=== PATIENT | male | born 1930 | race Caucasian/White ===

== ENCOUNTER 2017-01-28 18:07 | Inpatient (IN) | payer MEDICARE ==
[~2017-01-28] VITALS: Ht 165.1 cm; Wt 68.7 kg
[~2017-01-28 18:07] MED LIST: ASP81TEC PO; LISI20TA PO; TAM4 PO
--- NOTE | 2017-01-28 18:44 | ED.REPORT ---
HPI-Chest Pain 40 and Over Date of Service Jan 28, 2017 ED Provider: Dr. Powell 86 y/o male on Warfarin with a hx of HTN, BPH and angina presents to the ED complaining of waxing and waning substernal chest pain that radiates to the right side, onset a couple of hours ago. The pt was visiting his in the ED when his pain came on. The pt describes the pain as pressure that has been going on intermittently for about 7 months. It typically resolves after he rests and takes a few deep breaths. Today, the pain came on after he ate and did not resolve. Nursing Notes Stated Complaint: CHEST PAIN Chief Complaint: Chest Pain Nursing Notes Reviewed: Yes Allergies: Coded Allergies: No Known Allergies (Unverified Allergy, Unknown, 12/01/13) Scheduled Aspirin Chew (Aspirin Chew) 81 Mg Chew 81 MG PO QAM Atorvastatin (Lipitor) 20 Mg Tablet 20 MG PO HS Cholecalciferol (Vitamin D3) (Vitamin D3) 1,000 Unit Tab.chew 1,000 UNIT PO QAM Cyanocobalamin (Vitamin B12) 500 Mcg Tablet 1,000 MCG PO QAM Finasteride (Finasteride) 5 Mg Tablet 5 MG PO QAM Isosorbide MN ER (Isosorbide MN ER) 60 Mg Tab.er.24h 60 MG PO QAM Lisinopril (Lisinopril) 5 Mg Tablet 5 MG PO QAM Metoprolol Tartrate (Metoprolol Tartrate) 25 Mg Tablet 12.5 MG PO BID Tamsulosin ER (Tamsulosin ER) 0.4 Mg Cap.er.24h 0.8 MG PO HS Scheduled PRN Alprazolam (Alprazolam) 0.5 Mg Tablet 0.25 MG PO TID PRN PRN For Anxiety Nitroglycerin SL (Nitroglycerin SL) 0.4 Mg Tab.subl 0.4 MG SL Q5MIN PRN PRN For Chest Pain General Time Seen by MD: 18:44 Chief Complaint Chest pain Hx Obtained From: Patient Arrived By: Walk-in Sudden in Onset?: Yes Onset Occurred: 1 - 4 hours ago Symptom Duration: Waxes and wanes Location: : Substernal Quality: Pressure Radiation: : Shoulder right Severity: Current: Mild Severity: Maximum: Mild Recent Healthcare: No recent doctor visit Similar Sx Previous: Yes Past Medical History Past Medical History BPH HTN Angina Past Surgical History 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 Smoking History Unknown if Ever Smoker Social History Other Social History: Good social support, Ambulatory Status Independent Review of Systems Cardiovascular: Reports: Chest pain Complete sys rev & neg: except as marked. Physical Exam Initial Vital Signs Vital Signs (First) Date Time Temp Pulse Resp B/P Pulse Ox O2 Delivery O2 Flow Rate FiO2 01/28/17 18:55 36.7 135 20 121/76 95 Room Air Initial VS: Reviewed Head / Eyes: Atraumatic, Normocephalic Neck: Supple, Non-tender, Full range of motion Extremities: Vascular intact, Neuro intact, No swelling, No tenderness Skin: Warm, Dry, No cyanosis Neurologic: Alert, Oriented, Nonfocal General/Constitutional: Awake, Alert, Cooperative Respiratory / Chest: Atraumatic, Breath sounds NL, Breath sounds = bilat, No respiratory distress, No rales, No rhonchi, No wheezing Cardiovascular: Heart sounds NL, No murmurs, No rubs Heart Rate / Rhythm: Positive: Irreg irregular rhythm, Tachycardia Afib with RVR Abdomen: Atraumatic, Soft, Non-tender Interpretation & Diagnostics Lab Results Interpretation Result Diagram: 01/28/17191401/28/171914 Test 01/28/17 19:15 01/28/17 21:00 White Blood Count 18.3th/mm3 (3.8-10.1) Red Blood Count 4.43mil/mm3 (4.40-5.80) Hemoglobin 13.8g/dL (13.8-17.2) Hematocrit 40.8% (41.0-50.0) Mean Corpuscular Volume 92.1fL (81-100) Mean Corpuscular Hemoglobin 31.2pg (27.0-35.0) Mean Corpuscular Hemoglobin Concent 33.8% (32.0-37.0) Red Cell Distribution Width 13.7% (12.3-15.4) Platelet Count 196bil/L (150-400) Neutrophils (%) (Auto) 76.0% (40-74) Lymphocytes (%) (Auto) 10.7% (14-46) Monocytes (%) (Auto) 12.5% (4-12) Eosinophils (%) (Auto) 0.2% (0-5) Basophils (%) (Auto) 0.3% (0-3) Prothrombin Time 11.1sec (8.1-12.5) Prothromb Time International Ratio 1.04ratio Sodium Level 133mEq/L (134-144) Potassium Level 4.1mEq/L (3.5-5.2) Chloride Level 97mEq/L (97-108) Carbon Dioxide Level 21mmol/L (18-29) Blood Urea Nitrogen 24mg/dL (8-27) Creatinine 1.06mg/dL (0.76-1.27) Estimat Glomerular Filtration Rate 70mL/min (>59) Glucose Level 197mg/dL (60-99) Calcium Level 8.6mg/dL (8.5-10.1) Magnesium Level 2.0mg/dL (1.6-2.6) Total Bilirubin 0.9mg/dL (0.0-1.2) Aspartate Amino Transf (AST/SGOT) 12U/L (0-50) Alanine Aminotransferase (ALT/SGPT) 9U/L (0-44) Alkaline Phosphatase 67U/L (25-160) Total Protein 7.3g/dL (6.4-8.4) Albumin 3.4g/dL (3.4-5.0) Procalcitonin 0.04ng/mL (0.00-0.08) Thyroid Stimulating Hormone (TSH) 1.280uIU/mL (0.450-4.500) Hold Rivera Top Tube Received (Received) Urine Color Yellow (YELLOW) Urine Appearance Clear (CLEAR,HAZY) Urine pH 5.0 (5.0-8.0) Urine Specific [place] 1.005 (1.003-1.035) Urine Protein Negativemg/dL (NEG,TRACE) Urine Glucose (UA) Negativemg/dL (NEGATIVE) Urine Ketones Negativemg/dL (NEGATIVE) Urine Occult Blood Trace (NEGATIVE) Urine Nitrite Negative (NEGATIVE) Urine Bilirubin Negative (NEGATIVE) Urine Urobilinogen Normalmg/dL (NORMAL) Urine Leukocyte Esterase Trace (NEGATIVE) Urine RBC 3-10/hpf (0-2) Urine WBC 6-10/hpf (0-5) Urine Epithelial Cells Occasional/hpf (NONE-MOD) Urine Crystals None seen (NONE SEEN) Urine Bacteria Few/hpf (NONE-FEW) Urine Hyaline Casts None/lpf (NONE) Urine Granular Casts None seen (NONE SEEN) Urine Waxy Casts None seen (NONE SEEN) Urine Red Blood Cell Casts None seen (NONE SEEN) Urine White Blood Cell Casts None seen (NONE SEEN) Urine Mucus None seen (None Seen) Urine Trichomonas None seen (NONE SEEN) Urine Yeast None (NONE SEEN) Urinalysis Comment None Urine Culture Reflexed Indicated ECG Interpretation ECG Interpretation: Atrial Fibrillation with RVR. Rate 148. Repolarization abnormality, prob rate related. Time: 18:51 Interpreted by: ED physician X-Ray Chest Interpretation Chest Xray Interpretation: IMPRESSION: No acute cardiopulmonary disease. 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 Dictated by: Bobby Weaver M.D. on 01/28/2017 at 19:10 Approved by: Bobyb Weaver M.D. on 01/28/2017 at 19:12 View: Portable, 1 view Interpretation / Wet Read by: Interpret - Radiologist Re-Eval/Medical Decision Source of Hx: Old records Time of Eval: 18:48 Re-Evaluation/Progress Note: Discussed diagnosis and plan to admit. Pt understands and agrees with the plan for admission. All questions addressed. Time of Eval: 20:32 Re-Evaluation/Progress Note: Rechecked pt. His BP is 97 and heart rate is coming down. The pt agrees with the plan to admit. All questions answered. Consultation : Referral / Consult Name: Vicky Simon DO Consulted With: Hospitalist Call Returned at: 20:48 Tractor Technician: Will see patient, Agrees with eval, Agrees with plan, Accepts admit Counseled Regarding: Diagnosis, Lab results, Need for admission Discharge & Departure Primary Impression: Atrial fibrillation with RVR Additional Impression: New onset a-fib Disposition: ADMITTED TO HOSPITAL Discharge Condition All VS Reviewed: Yes Referrals: Amilcar Rivera MD (PCP) Crit Care Except Billable Proc Time Spent: 30-74 minutes Services Performed: Patient management by me, Time spent at bedside, Reviewing test results, Reviewing imaging, Discussing patient care, Documentation in record, Time with fam/surrogate Scribe Attestation Portions of this note were transcribed by Ritika Wright. IDr.Beia, personally performed the history, physical exam and medical decision-making;I reviewed and confirmed the accuracy of the information in the transcribed note. Signed by Wang Abad. 01/28/17 20:52 copies to: Amilcar Rivera MD, Todd P DO Jan 28, 2017 18:44 Ritika Wright Jan 28, 2017 18:50
[2017-01-28 18:55] VITALS: BP 121/76; PULSE 135; RESP 20; O2SAT 95
--- NOTE | 2017-01-28 19:13 | DRSVH ---
PROCEDURE: X-RAY CHEST ONE VIEW, PORTABLE ([id number]) INDICATIONS: 86 year-old male with left chest pain and tachycardia. TECHNIQUE: One view of the chest was acquired. COMPARISON: [facility], CT, CHEST WITH CONTRAST, 12/01/2013, 16:21. [facility], CR, XR CHEST 2VW, 12/21/2016, 9:48. [facility], CR, XR CHEST 2VW, 03/01/2016, 12:55. [facility], CR, ABDOMEN-ACUTE ABD SERIES, 08/03/2015, 2:29 PM. FINDINGS: Surgical changes and devices: None. Lungs and pleura: No pleural effusions or pneumothorax. Bilateral calcified pleural plaques are aga in noted. Lungs are clear. Mediastinum: Mediastinal contours appear normal. Heart size is normal. There is aortic atheroscler osis. Bones and chest wall: No suspicious bony lesions. Overlying soft tissues appear unremarkable. IMPRESSION: No acute cardiopulmonary disease. Bilateral calcified pleural plaques indicate remote asb estos exposure. Dictated by: Bobby Weaver M.D. on 01/28/2017 at 19:10 Approved by: Bobby Weaver M.D. on 01/28/2017 at 19:12
[2017-01-28 19:26] LABS: BASOPHILS % (AUTO) 0.3 % (0-3); EOSINOPHILS % (AUTO) 0.2 % (0-5); MONOCYTES % (AUTO) 12.5 % (4-12); Mean Corpuscular Hemoglobin 31.2 pg (27.0-35.0); Mean Corpuscular Volume 92.1 fL (81-100); Platelet Count 196 bil/L (150-400)
[2017-01-28 19:42] LABS: INR 1.04 ratio
[2017-01-28 19:43] VITALS: BP 112/57; PULSE 135; RESP 17; O2SAT 95
[2017-01-28] MEDS: Diltiazem HCl 125 MG in 0.9% Sodium Chloride 100 ML, Pharmacy To Mix 1 EA IV SCH (19:43)
[2017-01-28 20:25] LABS: TROPONIN T < 0.010 ug/L (0.0-0.011)
[2017-01-28] MEDS ORDERED: 0.9% Sodium Chloride 500 ML IV ONE (20:40)
[2017-01-28] MEDS ORDERED: ATOR20TA PO (20:43)
[2017-01-28] MEDS ORDERED: LISI-571 PO (20:43)
[2017-01-28] MEDS ORDERED: ASPI81TA3 PO (20:43)
[2017-01-28] MEDS ORDERED: ISOS60TA2 PO (20:43)
[2017-01-28] MEDS ORDERED: METO25TA6 PO (20:43)
[2017-01-28] MEDS ORDERED: FINA5TAB9 PO (20:43)
[2017-01-28] MEDS ORDERED: NITR0.4T6 SL (20:43)
[2017-01-28] MEDS ORDERED: CYAN500 PO (20:43)
[2017-01-28] MEDS ORDERED: CHOL10008 PO (20:43)
[2017-01-28] MEDS ORDERED: ALPR0.5T8 PO (20:43)
[2017-01-28] MEDS ORDERED: TAMS0.4C29 PO (20:43)
[2017-01-28 20:50] VITALS: BP 106/75; PULSE 114; RESP 17; O2SAT 95
[2017-01-28] MEDS ORDERED: Alum-Mag Hydrox-Simeth 30 mL Suspension PO PRN (20:50)
[2017-01-28] MEDS ORDERED: Ondansetron 2 mg/mL 2 mL Inj IVPUSH PRN (20:50)
[2017-01-28] MEDS ORDERED: HYDROcodone-APAP 5-325 mg Tablet PO PRN (20:50)
[2017-01-28] MEDS ORDERED: Polyethylene Glycol (PEG) 17 Gm Powder PO PRN (20:50)
[2017-01-28 21:26] LABS: APPEARANCE,URINE CLEAR (CLEAR,HAZY); COLOR,URINE YELLOW (YELLOW); OCCULT BLOOD,URINE TRACE (NEGATIVE); UROBILINOGEN,URINE NORMAL (NORMAL)
[2017-01-28 21:46] VITALS: BP 132/72; PULSE 112; RESP 17; O2SAT 96
[2017-01-28 22:05] VITALS: BP 125/70; PULSE 101; RESP 24; O2SAT 95
[2017-01-28] MEDS: Diltiazem Inj 125 MG in Dextrose 5% 100 ML IV SCH (22:20)
--- NOTE | 2017-01-28 22:20 | PCM.HPMED ---
Subjective Date of Service Jan 28, 2017 Primary Provider: Admitting Physician: Primary Care Physician: Amilcar Rivera MD Attending Physician: Chief Complaint: Chest pain History of Present Illness: Dayan Kong is an 86-year-old man with past history significant for coronary artery disease, hyperlipidemia, hypertension, remote history of sarcoma who presented to [facility] emergency department today due to sternal chest pain that started a few hours prior to presentation. Patient noted that his pain radiated to the right side of his chest. Apparently the patient's is also in emergency department and he was visiting her when the chest pain occurred. Patient has a history of coronary artery disease and has had intermittent chest pressure for the last 7 months but has resolved spontaneously. Patient notes that today of the chest pain did not resolve. He also noticed palpitations as well as shortness of breath. He denies any diaphoresis, nausea, vomiting, dominant pain, dysuria, cough. 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 In the emergency department his vitals were notable for a heart rate of 135 with a respiratory rate of 20 and a blood pressure 121/76 percent saturation on room air. Patient was noted to be in atrial fibrillation with rapid ventricular response and was initiated on a diltiazem drip. Patient responded nicely and his rate did drop but his blood pressure dropped a little as well. He was given 500 mL bolus of normal saline IV fluid with good response. Review of Systems: A comprehensive review of systems was conducted with the patient and found to be negative except as above in the History of Present Illness. Allergies Coded Allergies: No Known Allergies (Unverified Allergy, Unknown, 12/01/13) Home Medications Robert Kong [id number] 12/21/2016 09:00 AM 07/12 Medication Name Directions alprazolam 0.5 mg tablet take 1/2 tablet by oral route 3- 4 times every day as needed aspirin 81 mg Tab take 1 tablet (81MG) by oral route every day atorvastatin 20 mg tablet take 1 tablet by oral route at bedtime finasteride 5 mg tablet take 1 tablet by oral route every day FLOMAX 0.4MG CAPSULE SA CAPSULE TAKE ONE CAPSULE DAILY 1/2 HOUR FOLLOWING THE SAME MEAL DAILY FLONASE 0.05% NASAL SPRAY INHALANT USE 1-2 SPRAYS IN EACH NOSTRIL ONCE DAILY NEEDED isosorbide mononitrate ER 60 mg tablet,extended release 24 hr take 1 tablet by oral route every day in the morning LISINOPRIL TAB 5MG TABLET TAKE ONE TABLET BY MOUTH EVERY DAY metoprolol tartrate 25 mg tablet take 1/2 tablet by oral route 2 times every day nitroglycerin 0.[address] 1 tablet by sublingual route at the first sign of an attack; no more than 3 tabs are recommended within a 15 minute period. 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 Hypertension Microalbuminuria Anxiety Coronary artery disease Hyperlipidemia Surgical History Excision of sarcoma Family History Mother has diabetes mellitus. Social History Hx Alcohol Use: No Hx Substance Use: No Hx Tobacco Use: No Smoking Status: Unknown if Ever Smoker Exam Vital Signs Vital Sign - Last Date Time Temp Pulse Resp B/P Pulse Ox O2 Delivery O2 Flow Rate FiO2 01/28/17 19:43 135 17 112/57 95 Room Air 01/28/17 18:55 36.7 Exam General: No acute distress, well-developed, well-nourished, appropriately interactive HEENT: Normocephalic, atraumatic. External ears without defect. Pupils equal, round, and reactive to light and accommodation. Anicteric sclerae, moist conjunctivae, and no lid lag. Oropharynx free of erythema and cobble stoning with moist mucosa. Hard of hearing. Neck: Supple with full range of motion. No jugular venous distension. No bruits. No lymphadenopathy or thyromegaly. Cardiovascular: Tachycardic rate and irregular rhythm with no murmurs, rubs, or gallops appreciated Pulmonary: Clear to auscultation bilaterally with no crackles, wheezes, or rhonchi. Normal respiratory effort with no use of accessory muscles. Abdomen: Bowel tones present. Soft, nontender, nondistended. No hepatosplenomegaly or masses appreciated. Extremities: No clubbing, cyanosis, edema, or lymphadenopathy appreciated. Skin: Normal temperature, turgor, and texture; no rash, ulcers, or subcutaneous nodules appreciated. Neurological: Cranial nerves grossly intact. Normal muscle strength, tone, and bulk. Reflexes, coordination, and sensory function within normal limits. No known gait impairment. Psychiatric: Normal mood and affect. Alert and oriented to person, place, and time. Lymph:no cervical or supraclavicular lymphadenopathy Lab and Diagnostics Result Diagram: 01/28/17191401/28/171914 X-Rays, CTs and MRIs X-RAY CHEST ONE VIEW, PORTABLE IMPRESSION: No acute cardiopulmonary disease. 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 Dictated by: Bobby Weaver M.D. on 01/28/2017 at 19:10 Assessment & Plan Clearance Dilan is an 86-year-old man with past history significant for coronary artery disease, hyperlipidemia, hypertension, remote history of sarcoma who presented to [facility] emergency department today due to sternal chest pain that started a few hours prior to presentation. Patient noted that his pain radiated to the right side of his chest. Atrial fibrillation with rapid ventricular response, new onset, present on admission, active -Patient does have a history of coronary artery disease and is managed by cardiology outpatient. -Etiology of his atrial fibrillation includes: CAD as well as a possible infection given patient's leukocytosis -Patient did have an echocardiogram little over 6 months ago which was largely unremarkable. repeating ECHO tomorrow. -We will check troponin, TSH. -Monitor on telemetry -CHADS-Vasc score of 4 indicating high risk for CVA, HAS-BLED score of 2 indicating moderate risk for major bleeding. -Discussed anticoagulation with patient and his family who would agree to proceed with Warfarin. -Warfarin per pharmacy -Hold home metoprolol Leukocytosis, present remission, active -Possibly a stress reaction. -We will obtain a pro-calcitonin -Patient denies any dysuria but does have some WBC on UA, will await for culture. Coronary artery disease -Continue statin, hold metoprolol Hypertension, present on admission, active -We will hold off on patient's home and hypertensive meds given his soft blood pressure with diltiazem. Hyperlipidemia -Continue statin Hyperglycemia -No history of diabetes -A1C CODE STATUS: full Patient is admitted under inpatient status with expected length of stay greater than 2 midnights due to severity of presenting symptoms, risk of adverse event, and complexity of treatment plan. Resuscitation Status: CPR: Attempt Resuscitation Attending Statement The patient was seen and examined together with house staff on 01/28/2017 and I agree with the history, exam and plan as outlined in the note above. Brittany Huggins DO Jan 28, 2017 20:51 Vicky Simon DO Jan 29, 2017 02:05
[2017-01-28] MEDS ORDERED: ALPRAZolam 0.5 mg Tablet PO PRN (22:25)
--- NOTE | 2017-01-28 22:34 | PCM.PHAPRO ---
Progress Date of Service: Jan 28, 2017 Chest pain Warfarin Management per Pharmacy: Indication: Stroke prophylaxis as patient has atrial fibrillation ([id number]- Vasc = 4) Goal INR: 2-3 Labs: Hgb/Hct: 13.8/40.8 Plt: 196 INR: 1.07 Drug Interactions: None Recommendation: Will start patient at 5 mg as patient is elderly. INR ordered daily x 7 days Pharmacy to continue to monitor and adjust dose as needed. Thank You, Lawanda Monterroso, Pharm D. Lawanda Monterroso Jan 28, 2017 22:34
[2017-01-28 22:47] VITALS: PULSE 97
[2017-01-29] VITALS (10 sets, daily range): BP systolic 84–128; BP diastolic 47–73; PULSE 73–85; RESP 14–26; O2SAT 95–99
[2017-01-29] MEDS ORDERED: Heparin 5,000 Unit/mL Inj IVPUSH ONE (00:35)
[2017-01-29] MEDS ORDERED: Heparin 25K Unit/500mL 0.45 NS 25,000 UNIT in IV Premix 1 EACH IV SCH (00:35)
[2017-01-29] MEDS ORDERED: 0.9% Sodium Chloride 250 ML IV ONE (02:15)
[2017-01-29 03:09] LABS: BASOPHILS % (AUTO) 0.3 % (0-3); EOSINOPHILS % (AUTO) 0.6 % (0-5); MONOCYTES % (AUTO) 15.5 % (4-12); Mean Corpuscular Hemoglobin 31.2 pg (27.0-35.0); Mean Corpuscular Volume 92.7 fL (81-100); NEUTROPHILS % (AUTO) 68.8 % (40-74); Platelet Count 195 bil/L (150-400)
[2017-01-29 03:32] LABS: INR 1.1 ratio
[2017-01-29] MEDS ORDERED: 0.9% Sodium Chloride 500 ML IV ONE (03:45)
[2017-01-29 04:25] LABS: TROPONIN T 0.212 ug/L (0.0-0.011)
--- NOTE | 2017-01-29 06:05 | NUR ---
Admit Pt arrived to PCC room 2004 via bed from ED at approx. 2150; report received from ED RN; all belongings transferred with patient. Pt denies pain upon arrival, Cardizem gtt infusing at 5ml/hr; VSS, RA. Tele afib 90s-110s. Admit documentation completed with patient and patient's son; med rec completed in ED; per patient, advance directive at home and family asked to bring in the following day. Home meds and life alert button in patient's belongings sent home with son Eric. At approx. 0000, BP began to trend down to systolic of 80s-90s; at approx 0030, Cardizem gtt put on hold and paged for SBP reading of 79. BP began to increase to 110s systolic, but returned to systolic of 80s-90s; paged, one time order for 250ml NS bolus administered. Temporary increase in BP, with subsequent fall back to SBP of 80s-90s. HR approx. 80s-100s, with intermittent non-sustained accelerations to 140s. paged, additional bolus of 500ml NS administered. Pt maintaining systolic between 90s-100s. Tele throughout this time alternating between irregular sinus rhythm, afib, aflutter, and sinus rhythm with frequent PACs. At approx. 0540 this AM, pt demonstrated SR 70s on MP30; STAT EKG obtained for rhythm change. No further ectopy noted at this time. Heparin gtt infusing at 800units/hr per cardiac protocol. SCDs in place.
[2017-01-29] MEDS: Heparin 5,000 Unit/mL Inj IVPUSH PRN ×2 (09:06→18:47)
[2017-01-29] MEDS ORDERED: 0.9% Sodium Chloride 250 ML ONE (10:07)
--- NOTE | 2017-01-29 11:24 | DRSVH ---
[facility] [address] [place] [address] Echocardiogram Report Name: CHEPE PATEL RStudy Date: 01/29 Height: 65 in Hospital Exam Location: [facility] Weight: 145 lb Gender: Male BSA: 1.7 m2 : 1930 Age: 86 yrs BP: 122/73 mmHg Reason For Study: Atrial fibrillation Ordering Physician: HOSPITALIST [facility] Performed By: Haile Bateman Referring Physician: Denton Mora Interpretation Summary The ejection fraction is estimated to be 50-55%. Mid anteroseptal and distal inferior hypokinesis- new There is no significant valvular heart disease. Procedure: A two-dimensional transthoracic echocardiogram with color flow and Doppler was performed in limited views only. The study quality was technically adequate. Comparison is made with the echocardiogram of 09/29/16. The patient was in 59-89 during the exam. Left Ventricle: The left ventricle is normal in size, wall thickness, and systolic function without any focal wall motion abnormalities. The ejection fraction is estimated to be 50-55%. Mid anteroseptal and distal inferior hypokinesis- new. Assessment of diastolic parameters indicates normal left ventricular diastolic function and normal filling pressures. Right Ventricle: The right ventricle is normal in size and function. Atria: Both atria are normal in size. The interatrial septum is intact with no evidence for an atrial septal defect. Mitral Valve: The mitral valve leaflets appear thickened, but open well. There is trace mitral regurgitation. Aortic Valve: The aortic valve is trileaflet. The aortic valve opens well. No aortic regurgitation is present. Tricuspid Valve: The tricuspid valve is normal in structure and function. There is trace tricuspid regurgitation. The right ventricular systolic pressure is estimated at 23 mmHg assuming a right atrial pressure of 3 mm Hg. Pulmonic Valve: The pulmonic valve is normal in structure and function. There is mild pulmonic regurgitation. Great Vessels: The aortic root is normal size. The ascending aorta could not be visualized. The pulmonary artery is normal size. The IVC is of normal diameter and collapses greater than 50% with a sniff. This suggests a low right atrial pressure of 3 mm Hg. Pericardium/ Pleura There is no pericardial effusion. There is no pleural effusion. MMode/2D Measurements & Calculations LVIDd: 4.1 cm RA long axis LVOT diam LVIDs: 2.5 cm LA A2 area: 16.2 cm FS: 38.9 % LA A4 area: 11.6 cm RA area AoV Opening EPSS: 0.22 cm LA length (vol): 4.4 cm IVSd: 0.66 cm LA vol: 36.3 ml : 10.7 cm Ao root diam LVPWd: 0.62 cm LA vol index RA vol: 22.8 ml: 3.2 cm RA : 13.2 mm2 IVC diam: 1.6 cm LV mustafa. diameter/BSA LV sys. diameter/BSA RVD1 (basal) RVD2 (mid) (cm/m^2): 2.4 (cm/m^2): 1.5 : 2.6 cm TAPSE: 2.3 cm Doppler Measurements & Calculations Ao V2 max MV E max junior MV E/A: 1.0 TR max junior : 132.5 cm/sec : 86.9 cm/sec Med Peak E' Junior : 237.3 cm/sec Ao max PG MV A max junior TR max PG : 7.0 mmHg : 86.9 cm/sec E/E' med: 12.0 : 20.3 mmHg Ao mean PG MV P1/2t: 45.1 msec Lat Peak E' Junior PA V2 max : 82.3 cm/sec LVOT Max Junior E/E' lat: 10.9 PA mean PG : 106.1 cm/sec E/e' average PA Accel Time SERJIO(I,D): 2.8 cm : 0.07 sec sev ratio MV dec time MV P1/2t max junior Ao V2 mean LV V1 max PG : 0.15 sec : 88.4 cm/sec MVA(P1/2t): 4.9 cm2 Ao V2 VTI: 27.2 cmLV V1 VTI SERJIO(V,D): 2.7 cm2 : 22.7 cm PA V2 mean SERJIO indexed to BSA : 60.7 cm/sec (cm^2/m^2): 1.6 Electronically signed by: Moustapha Dacosta on Reading Physician:01/29/2017 11:23 AM
--- NOTE | 2017-01-29 13:25 | CONS ---
[address] [address] CONSULTATION REPORT PATIENT: CHEPE PATEL : 1930 MR#: [id number] ADMIT: 01/28/2017 JOB ID: [id number] DATE OF SERVICE: 01/29/2017 CARDIOLOGY CONSULTATION: CHIEF COMPLAINT: Chest pain. Thank you for referring this very pleasant 86-year-old gentleman who presented to the hospital with history of chest pain. The chest pain has been episodic off and on. At times it is exertional. At times it has occurred at rest. He describes it as a heaviness in his chest. He did feel better with nitroglycerin. In the hospital his troponin was elevated. It peaked at around 0.2. The patient has known history of coronary artery disease. 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 The patient was treated medically by Dr. Mesa. He has not had an angiogram. Currently at the time of interview, he is not having any pain but he did have some chest discomfort earlier today. MEDICATIONS AT HOME: 1. Alprazolam. 2. Aspirin. 3. Atorvastatin. 4. Finasteride. 5. Flonase. 6. Flomax. 7. Isosorbide mononitrate 60 daily. 8. Lisinopril 5. 9. Metoprolol 25 half a tablet b.i.d. 10. Tamsulosin. 11. Vitamin B12. PAST MEDICAL HISTORY: 1. Hypertension. 2. Microalbuminuria. 3. Anxiety. 4. Coronary artery disease. 5. Hyperlipidemia. 6. 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 PERSONAL HISTORY: Nonsmoker. Nondrinker. FAMILY HISTORY: Negative for premature coronary artery disease. PHYSICAL EXAMINATION: Comfortable, elderly man, slightly hard of hearing. In no distress. Pulse 80, blood pressure 120/60. Neck: Supple. No JVD. Chest: Clear. Heart sounds S1, S2, regular. No murmurs, no gallops. Abdomen: Soft. Negative for CCE. 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 Distal pulses are 2+. LABORATORY DATA: Is significant for an elevated white count. Creatinine is normal. Chest x-ray did not show any evidence of cardiopulmonary disease. A few calcific plaques suggestive of prior asbestos exposure were noted. ASSESSMENT AND PLAN: 1. This gentleman presents with a non-ST elevation myocardial infarction. I have given him the option of medical therapy versus invasive therapy. He discussed this with his son-in-law who has had multiple cardiac procedures up in [place]. His daughter was also present. He chose to proceed ahead with coronary angiography and revascularization if needed. Risks, benefits and alternatives were explained to him. This will be scheduled for tomorrow since patient already ate breakfast. 2. Leukocytosis, unclear etiology. Does not appear to be infected especially with a normal procalcitonin. 3. With regard to atrial fibrillation, his EKG showed sinus rhythm with ST depression suggestive of ischemia. Low voltage EKG. I have not seen any atrial fibrillation. I will be reviewing his telemetry. If he does have atrial fibrillation, then he might be an appropriate candidate for long-term anticoagulation. Also of note, I have reviewed his echocardiogram. His echocardiogram showed new wall motion abnormalities with a low normal ejection fraction.
--- NOTE | 2017-01-29 17:50 | PCM.PNMED ---
Subjective Date of Service Jan 29, 2017 Subjective Patient is an 86 y/o male admitted overnight for Chest Pain with an elevated troponin of 0.104 that continued to rise overnight to 0.212. In the ED patient went into Afib with RVR. ED team placed him on Diltiazem drip, and patient converted back to NSR. Patient's SBP fell to 79 and patient was given 500ml NS to which he responded well. Upon evaluation, patient was experiencing chest pain along the left sternal border that did not radiate. He denies any shortness of breath at this time, but states that he was having some diaphoresis. He denies Nausea, vomiting, palpitations, or headache. Patient revealed that he had been seen by cardiology , Dr. Mesa, for an echo on 09/29/16 which revealed an EF of 60-65% with mild diastolic abnormalities. Exam Vital Signs Vital Sign - Last Date Time Temp Pulse Resp B/P Pulse Ox O2 Delivery O2 Flow Rate FiO2 01/29/17 17:38 84/58 01/29/17 16:22 Supplement Oxygen 01/29/17 16:13 37.0 84 25 97 3.00 Intake and Output 01/28/17 01/28/17 01/29/17 Cumulative From/Thru 15:00 23:00 07:00 01/28/17 18:55 - 01/29/17 06:58 Intake Total 500 ml 1156 ml 1656 ml Output Total 700 ml 700 ml Balance 500 ml 456 ml 956 ml Intake Oral 200 ml 200 ml IV Total 500 ml 956 ml 1456 ml Output Urine Total 700 ml 700 ml Exam Constitutional: Awake Alert and Oriented x3. No acute distress Head: Atraumatic and Normocephalic Eyes Pupils equal round and reactive. EOMI Heart: regular rate and rhythm. No peripheral edema Lungs: Clear to auscultation bilaterally. No wheeze, rales, or rhonchi ABD: soft, nontender, bowel sound present throughout Musculoskeletal: Good muscle tone, moves all four extremities appropriately Skin: Warm and dry. no rashes. Neuro: CN II-XII intact, no focal deficits Psych: appropriate mood and affect. IVs and Medications IV Fluids 500ml NS Medications Reviewed: Medications were reviewed in detail Lab and Diagnostics Item Value Date Time Red Blood Count 4.26 mil/mm3 L 01/29/17 0245 Mean Corpuscular Volume 92.7 fL 01/29/17244 Mean Corpuscular Hemoglobin 31.2 pg 01/29/17244 Mean Corpuscular Hemoglobin Concent 33.7 % 01/29/17244 Red Cell Distribution Width 13.8 % 01/29/17244 Platelet Count 195 jovi/L 01/29/17244 Neutrophils (%) (Auto) 68.8 % 01/29/17 024 Lymphocytes (%) (Auto) 14.5 % 01/29/17 024 Monocytes (%) (Auto) 15.5 % H 01/29/17 024 Eosinophils (%) (Auto) 0.6 % 01/29/17 024 Basophils (%) (Auto) 0.3 % 01/29/17244 Troponin T 0.207 ug/L *H 01/29/17 0702 Troponin T 0.212 ug/L *H 01/29/17244 Troponin T 0.104 ug/L *H 01/28/17 2257 Calcium Level 8.2 mg/dL L 01/29/17244 Procalcitonin 0.04 ng/mL 01/28/17 191 Result Diagram: 01/29/175 01/29/17244 Microbiology Nasopharyngeal PCR - none detected Blood Cultures Pending. X-Rays, CTs and MRIs X-RAY CHEST ONE VIEW, PORTABLE IMPRESSION: No acute cardiopulmonary disease. 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 Dictated by: Bobby Weaver M.D. on 01/28/2017 at 19:10 12-lead ECG Normal Sinus rhythm. Low voltage. Cardiac Echo Impressions Echocardiogram Report Interpretation Summary The ejection fraction is estimated to be 50-55%. Mid anteroseptal and distal inferior hypokinesis- new There is no significant valvular heart disease. Electronically signed by: Moustapha Dacosta on Reading Physician:01/29/2017 11:23 AM Assessment & Plan Clearance Dilan is an 86-year-old man with past history significant for coronary artery disease, hyperlipidemia, hypertension, remote history of sarcoma who presented to [facility] emergency department today due to sternal chest pain that started a few hours prior to presentation. Patient noted that his pain radiated to the right side of his chest. Atrial fibrillation with rapid ventricular response, new onset, present on admission, Resolved -Patient does have a history of coronary artery disease and is managed by cardiology outpatient. -Etiology of his atrial fibrillation includes: CAD as well as a possible infection given patient's leukocytosis -Today's echo showed EF of 50-55% with mid anteroseptal and distal inferior hypokinesis, which is changed from his 09/29/16 echo with EF 60-65% NSTEMI - Chest Pain with elevated Troponin, new onset, present admission, ongoing - Discussed with Dr. Dacosta who will be performing diagnostic heart cath tomorrow (01/30) morning -Trending troponins -Monitor on telemetry -CHADS-Vasc score of 4 indicating high risk for CVA, HAS-BLED score of 2 indicating moderate risk for major bleeding. - Stop Warfarin for right now. Reevaluate per results of cath. - Patient is on a heparin drip. We will stop the heparin tomorrow (01/30) at 0600. -NPO after midnight -Hold home metoprolol Leukocytosis, present remission, active -Possibly a stress reaction. -Patient denies any dysuria but does have some WBC on UA, will await for culture. Coronary artery disease -Continue statin, hold metoprolol Hypertension, present on admission, active -We will hold off on patient's home and hypertensive meds given his soft blood pressure with diltiazem. Hyperlipidemia -Continue statin Hyperglycemia -No history of diabetes -A1C - pending CODE STATUS: full Patient is admitted under inpatient status with expected length of stay greater than 2 midnights due to severity of presenting symptoms, risk of adverse event, and complexity of treatment plan. VTE Mechanical Devices: Intermittant Pneumatic CD Resuscitation Status: CPR: Attempt Resuscitation Attending Statement The patient was seen and examined together with Dr. Oconnell on 01/29/17 and I agree with the history, exam and plan as outlined in the note above. Dwight Oconnell DO Jan 29, 2017 17:50 Manjula Helm DO Feb 01, 2017 17:16
--- NOTE | 2017-01-29 19:20 | NUR ---
Chest pain Pt reported intermittent CP this am, made aware who assessed Pt, instructed to apply 2L O2 via nasal cannula and one time dose of IV morphine ordered. 2L O2 via nasal cannula applied and Pt reported pain resolved prior to giving morphine, morphine withheld at this time. Pt reported that he had also been experiencing intermittent SOB today and that that had improved since O2 applied. Pt reported heart burn later in the shift for which he received maalox PRN, Pt reported stomach burn to resolve, but then was reporting more CP, MD notified. Pt given nitro SL X2 without effect, given 1mg morphine and Pt reported pain to start to lessen, oncoming made aware.
[2017-01-29] MEDS: Diltiazem Inj 125 MG in Dextrose 5% 100 ML IV SCH (19:48)
[2017-01-30] VITALS (19 sets, daily range): BP systolic 97–130; BP diastolic 50–77; PULSE 53–140; RESP 16–25; O2SAT 95–98
[2017-01-30] MEDS: Heparin 5,000 Unit/mL Inj IVPUSH PRN (01:55)
[2017-01-30] MEDS ORDERED: Nitroglycerin 2% 1 Gm Ointment TOPICAL ONE (02:20)
--- NOTE | 2017-01-30 06:04 | NUR ---
Chest Pain At HS, pt reported "the pain is there, but it doesn't hurt; whatever it was they gave to me earlier really helped." At approx. 0000, pt reported chest pain had returned at 6/10; 1mg morphine administered with relief upon reassessment. At approx. 0200, pt reported chest pain had returned again, stating "the morphine doesn't seem to work for very long, even though it works"; paged, order obtained for nitroglycerin paste and STAT EKG. Nitro paste applied, EKG obtained; pt reported upon reassessment "the paste helped a lot; the pain is pretty much gone." No further complaints of chest pain throughout shift, VSS, tele SR 70s. NPO after midnight.
--- NOTE | 2017-01-30 06:26 | PCM.PNMED ---
Subjective Date of Service Jan 30, 2017 Subjective Nursing reports CP returned at 0000, 1mg Morphine given with relief of pain. @ 0200, CP returned. NTG paste given and repeat EKG ordered showing no changes from previous study on 01/29. Vitals stable. Patient NPO after midnight for cardiac angiography today (01/30). Exam Vital Signs Vital Sign - Last Date Time Temp Pulse Resp B/P Pulse Ox O2 Delivery O2 Flow Rate FiO2 01/30/17 06:01 79 01/30/17 03:07 37.2 25 118/68 97 Nasal Cannula 2.00 Intake and Output 01/29/17 01/29/17 01/30/17 Cumulative From/Thru 15:00 23:00 07:00 01/28/17 18:55 - 01/30/17 06:08 Intake Total 749 ml 338 ml 2743 ml Output Total 800 ml 500 ml 2000 ml Balance -51 ml -162 ml 743 ml Intake Oral 440 ml 100 ml 740 ml IV Total 309 ml 238 ml 2003 ml Output Urine Total 800 ml 500 ml 2000 ml # Bowel Movements 1 0 1 Exam Constitutional: awake, alert and conversational. Cooperative. No acute distress Head: normocephalic and atraumatic Eyes: Pupils equal round and reactive to light. EOMI. Heart: Regular Rate and rhythm. No murmurs. No peripheral edema. Lungs: Clear to auscultation bilaterally. No wheeze, rales, or rhonchi ABD: soft and nontender. Normal bowel sounds. Musculoskeletal: Good muscle tone. Moves all extremities appropriately. Neuro: CN II-XII intact. No focal deficits. Psych: appropriate mood and affect. IVs and Medications IV Fluids 1 L NS. Medications Reviewed: Medications were reviewed in detail Medications Heparin drip Lab and Diagnostics Item Value Date Time Red Blood Count 4.26 mil/mm3 L 01/29/17244 Mean Corpuscular Volume 92.7 fL 01/29/17244 Mean Corpuscular Hemoglobin 31.2 pg 01/29/17244 Mean Corpuscular Hemoglobin Concent 33.7 % 01/29/17 024 Red Cell Distribution Width 13.8 % 01/29/17 024 Neutrophils (%) (Auto) 68.8 % 01/29/17 0245 Lymphocytes (%) (Auto) 14.5 % 01/29/17 024 Monocytes (%) (Auto) 15.5 % H 01/29/17244 Eosinophils (%) (Auto) 0.6 % 01/29/17244 Basophils (%) (Auto) 0.3 % 01/29/17244 Result Diagram: 01/29/1724401/29/17244 Microbiology Nasopharyngeal PCR - none detected Blood Cultures Pending. UA Specimen: [id number] Collected: 01/28/17 Status: COMP Req#: [id number] Received: 01/28/17 Source: URINE CC Sp Desc : PP Subm Dr: Matt Powell DO Ordered: URINE CULT Procedure Result Verified Site Microbiology GILDA CULT URINE Final 01/30/17 Organism 1 MIXED UROGENITAL AYE U COLONY COUNT/QUANTITY 25-50,000 CFU/ml X-Rays, CTs and MRIs X-RAY CHEST ONE VIEW, PORTABLE IMPRESSION: No acute cardiopulmonary disease. 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 Dictated by: Bobby Weaver M.D. on 01/28/2017 at 19:10 12-lead ECG Normal Sinus rhythm. Low voltage. (@ 02:45) Repeat showed no changes. Cardiac Echo Impressions Echocardiogram Report Interpretation Summary The ejection fraction is estimated to be 50-55%. Mid anteroseptal and distal inferior hypokinesis- new There is no significant valvular heart disease. Electronically signed by: Moustapha Dacosta on Reading Physician:01/29/2017 11:23 AM Assessment & Plan Clearance Dilan is an 86-year-old man with past history significant for coronary artery disease, hyperlipidemia, hypertension, remote history of sarcoma who presented to [facility] emergency department today due to sternal chest pain that started a few hours prior to presentation. Patient noted that his pain radiated to the right side of his chest. Atrial fibrillation with rapid ventricular response, new onset, present on admission, Resolved -Patient does have a history of coronary artery disease and is managed by cardiology outpatient. -Etiology of his atrial fibrillation includes: CAD as well as a possible infection given patient's leukocytosis -01/30 echo showed EF of 50-55% with mid anteroseptal and distal inferior hypokinesis, which is changed from his 09/29/16 echo with EF 60-65% NSTEMI - Chest Pain with elevated Troponin, 90% stenosis of LAD per (01/30) angiography, new onset, present admission, ongoing - Cardiac Angiography done today by Dr. Dacosta - Patient had 90% stenosis of LAD with one stent placed -Monitor on telemetry -CHADS-Vasc score of 4 indicating high risk for CVA, HAS-BLED score of 2 indicating moderate risk for major bleeding. - Stop Warfarin for right now. Reevaluate per results of cath. - Patient is on a heparin drip. We will stop the heparin tomorrow (01/30) at 0600. -Start Metoprolol tartrate 50 mg PO BID - Increase Statin dose to 40mg/day - Start ACEI - Lisinopril 5mg PO daily - Start Clopidogrel 75mg PO daily - Continue supplemental O2 at 2L NC - Continue Morphine 2mg IV PRN - Continue NTG 0.5mg topical PRN Leukocytosis, present remission, active -Possibly a stress reaction. will recheck CBC in AM -UA Culture positive for multiple aye. Patient denies any urinary sxs. Likely a contaminated specimen. Will reassess in the AM. Coronary artery disease -Continue statin, Hypertension, present on admission, active -Start Metoprolol Tartrate 50mg PO BID - will see what cardiology wants to dose patient with before dispo. Hyperlipidemia -increase statin dose as above Hyperglycemia -No history of diabetes -A1C - pending CODE STATUS: full Patient is admitted under inpatient status with expected length of stay greater than 2 midnights due to severity of presenting symptoms, risk of adverse event, and complexity of treatment plan. VTE Mechanical Devices: Intermittant Pneumatic CD Resuscitation Status: CPR: Attempt Resuscitation Attending Statement The patient was seen and examined together with Dr. Oconnell on 01/30/17 and I have added additional information to the note above. Dwight Oconnell DO Jan 30, 2017 06:26 Manjula Helm DO Feb 01, 2017 16:24
[2017-01-30 08:27] LABS: BASOPHILS % (AUTO) 0.2 % (0-3); EOSINOPHILS % (AUTO) 0.1 % (0-5); MONOCYTES % (AUTO) 9.2 % (4-12); Mean Corpuscular Volume 90.9 fL (81-100); NEUTROPHILS % (AUTO) 81.5 % (40-74); Platelet Count 205 bil/L (150-400)
[2017-01-30 08:45] LABS: INR 1.04 ratio
[2017-01-30 09:21] LABS: TROPONIN T 0.35 ug/L (0.0-0.011)
[2017-01-30] MEDS ORDERED: Heparin 10,000 Unit/1,000 mL NS Premix IV ONE (10:43)
[2017-01-30] MEDS ORDERED: Nitroglycerin 50,000 mcg/250 mL D5W Premix IV ONE (10:43)
[2017-01-30] MEDS ORDERED: Heparin 1,000 Unit/mL 10 mL Inj ONE (10:43)
[2017-01-30] MEDS ORDERED: Heparin 1,000 Units/500 mL NS Premix IV ONE (10:43)
[2017-01-30] MEDS ORDERED: fentaNYL-PF 50 mCg/mL 2 mL Inj ONE (11:02)
[2017-01-30] MEDS: Diltiazem 5 mg/mL 5 mL Inj IV PRN ×2 (12:18→12:28)
--- NOTE | 2017-01-30 12:41 | DI95 ---
[address] [address] INTERVENTIONAL CARDIAC CATHETERIZATION PATIENT: CHEPE PATEL : 1930 MR#: [id number] ADMIT: 01/28/2017 JOB ID: [id number] DATE OF SERVICE: PROCEDURE: 1. Selective right and left coronary angiography. 2. Left heart catheterization. 3. Percutaneous intervention of the left anterior descending. INDICATION: Non ST-elevation myocardial infarction. HISTORICAL DETAILS: This patient came in with non-ST elevation myocardial infarction. He was noted to have mildly elevated white count. His procalcitonin is negative and his lactic acidosis was normal. His UA showed mixed aye. There was no obvious signs of infection. The patient was brought to the catheterization laboratory for heart catheterization and possible intervention. PROCEDURAL DETAILS: These are well enumerated in the procedure log to which the reader and the coders are referred. 1. Left main short: No significant disease. 2. LAD has a tight 90% lesion in its proximal segment. This is followed by mild 30% to 40% tubular stenosis on area of . Mid LAD has an eccentric short 50% lesion. 3. Circumflex is nondominant. The first major obtuse marginal branch has 40% to 50% lesion in its proximal part at the ostium followed by a tight 80% lesion. This is about a 2.25 mm to 2.5 mm vessel. 4. The right coronary artery is codominant in the sense that it gives off the PDA but most of the posterolateral circulation is through the circumflex. The right coronary artery is tortuous and free of any critical stenosis. 5. Left heart catheterization revealed an LVEDP that ranged from 25-30. There is severe apical and anteroapical hypokinesis. EF is estimated to be 35%. There was no gradient upon pullback. 6. The patient is also noted to have runs of atrial fibrillation with paroxysms going as high as 130 beats per minute. INTERVENTIONAL REPORT: We then proceeded ahead with an intervention on the LAD. This was pre-dilated with a 2.0 balloon and then stented with a 3.0 x 26 mm balloon. The proximal part of the stent was post dilated with a 3.5 x 18 mm stent. Final angiographic results were excellent. The patient is advised to stay on dual antiplatelet therapy for at least six months. Given the fact that he goes in and out of atrial fibrillation, he would be a candidate for anticoagulation as well. I will be discussing all this with the patient. My suggestion would be to start him on either aspirin, Plavix or warfarin and Plavix for six months and then switch to warfarin alone.
[2017-01-30] MEDS ORDERED: Diltiazem 5 mg/mL 5 mL Inj IV ONE (13:45)
[2017-01-30] MEDS ORDERED: 0.9% Sodium Chloride 250 ML BOLUS IV PRN (13:55)
[2017-01-30] MEDS ORDERED: Atropine 1 mg/10 mL (Code) Syringe IVPUSH PRN (13:55)
[2017-01-30] MEDS ORDERED: Sodium Chloride LOK Flush 10 mL Syringe IVFLUSH PRN (13:55)
[2017-01-30] MEDS ORDERED: Clopidogrel 300 mg Tablet (LOADING DOSE) PO ONE (13:55)
[2017-01-30] MEDS ORDERED: 0.9% Sodium Chloride 400 ML (4 HRS) IV ONE (13:55)
--- NOTE | 2017-01-30 15:31 | NUR ---
Social Work Note: Initial Assessment/Multidisciplinary Rounds Data& Assessment: EMR reviewed. Pt was discussed in AM rounds today, per MD pt is not medically ready for discharge at this time. Cardiology is following. Pt was in the director geophysical laboratory today. SW met with pt and pt daughter Carrie at bedside to discuss discharge planning and assess for any unmet needs, SW role explained and discharge planning checklist provided. Robert Kong is a 86 year old male admitted on 01/18/2017 for new onset AFIB with RVR and chest pain. Pt has [employer] [facility] [place] Medicare. Pt states he is also a but is not service connected. Pt sees Amilcar Rivera for primary care and has a PCP appointment next month. Pt lives in [place] with his spouse and his daughter lives in a [id number] suite that was built onto their house. Pt home is one level with three steps to enter the home. Pt normally does not require any DME at baseline and does not have HH or SNF hx. Pt does not have LTC insurance. Pt has DPOA/AD paperwork completed, pt family brought in a copy and a copy was placed on pt chart. Pt was provided with Senior Resource Guide to review to prepare for intermediate care planning per pt request as he likes to do his research and be prepared. Pt and pt daughter denies any needs at this time. No MD orders identified at this time. Pt independent with self care during this hospitalization. MD has not identified any concerns with pt capacity for self care. SW to continue to follow if any pt needs or MD orders arise. Plan: Anticipated discharge home via POV when medically ready. Pt and pt daughter denies any needs at this time. No MD orders identified at this time. SW to continue to follow if any pt needs or MD orders arise. FRANKIE Cornejo Addendum: 01/30/17 at 1538 by NADIA MCKEE Amended: Links added.
--- NOTE | 2017-01-30 15:39 | NUR ---
ARCELIA Signed FRAKNIE Cornejo
--- NOTE | 2017-01-30 17:05 | NUR ---
spiritual care: pt request lengthy conversational visit. pt reflected on medical situation and also caring demands as his has memory loss. Dtr in room, both discussed changes and challenges that family faces. Offered resource/educator suggestion to dtr who expressed gratitude. Pt reflective about his pete 7th day religious and the impact of this lifelong practise/belief system on him. Pleasant conversational tone, pt appeared comfortable and glad for medical progress.
[2017-01-30] MEDS: Diltiazem Inj 125 MG in Dextrose 5% 100 ML IV SCH (19:34)
--- NOTE | 2017-01-30 19:45 | NUR ---
Left unit/A fib Pt left PCC room 2004 for quality control lab tech this am at ~1050 and returned to [facility] room 2004 from [facility] at ~1440 today. Pt A&Ox3, denied pain, and VSS both prior to leaving and after returning with exception of elevated HR after the procedure. Per report, Pt had flipped back into a fib during quality control lab tech today. Pt in a fib with HR 100s-110s upon returning, but Pt began to trend back up to the 130s per wildlife technician, Pt's metoprolol set to start on NOC shift, made aware and one time dose of 50mg PO metoprolol ordered, Pt's HR trended back down into the 90s by end of shift, oncoming NOC RN made aware.
[2017-01-31] VITALS (9 sets, daily range): BP systolic 102–117; BP diastolic 56–72; PULSE 64–98; RESP 12–20; O2SAT 95–97
--- NOTE | 2017-01-31 03:06 | NUR ---
tele unit: pt's heart rate flipping back and forth between sinus rhythm 70's and afib/aflutter 80's, pt. asymptomatic, denies chest pain, denies sob.
[2017-01-31 03:40] LABS: Mean Corpuscular Hemoglobin 31.2 pg (27.0-35.0); Mean Corpuscular Volume 91.2 fL (81-100)
--- NOTE | 2017-01-31 08:09 | NUR ---
Spoke with Eilzabeth at the [facility] in patient access and this patient is non service connected holds [place] and has MCR part D as well. 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
[2017-01-31] MEDS: cefTRIAXone Inj 2,000 MG in Dextrose 5% Minibag Plus 50 ML IV SCH (10:30)
--- NOTE | 2017-01-31 10:37 | DRSVH ---
PROCEDURE: X-RAY CHEST ONE VIEW, PORTABLE ([id number]) INDICATIONS: cough, high white cell count TECHNIQUE: One view of the chest was acquired. COMPARISON: [facility], CT, CHEST W/O CONTRAST, 11/24/2012, 15:14. Merged With [facility] l, CR, XR CHEST 1VW (PORTABLE), 01/28/2017, 18:48. FINDINGS: Surgical changes and devices: None. Lungs and pleura: No pleural effusions or pneumothorax. Bilateral calcified pleural plaques are aga in noted. Lung volumes are low and there is airspace opacity involving the medial right lung base. Mediastinum: Mediastinal contours appear normal. Heart size is normal. There is aortic atheroscler osis. Bones and chest wall: No suspicious bony lesions. Overlying soft tissues appear unremarkable. IMPRESSION: 1. Medial right basilar patchy airspace opacity consistent with atelectasis, aspiration or developing pneumonia. Correlate clinically. 2. Bilateral pleural plaques redemonstrated consistent with remote asbestos exposure. Dictated by: Sam Proctor RRA Interpreted: China Lorenz MD on 01/31/2017 at 10:03 Approved by: China Lorenz MD, PhD on 01/31/2017 at 10:34
[2017-01-31 10:53] LABS: APPEARANCE,URINE HAZY (CLEAR,HAZY); COLOR,URINE YELLOW (YELLOW); OCCULT BLOOD,URINE MODERATE (NEGATIVE); PH,URINE 5.5 (5.0-8.0); UROBILINOGEN,URINE NORMAL (NORMAL)
[2017-01-31 11:18] LABS: BASOPHILS % (AUTO) 0.3 % (0-3); EOSINOPHILS % (AUTO) 0.3 % (0-5); MONOCYTES % (AUTO) 13.6 % (4-12); NEUTROPHILS % (AUTO) 72.1 % (40-74)
--- NOTE | 2017-01-31 12:59 | PROG NOTE ---
[address] [address] PROGRESS NOTE PATIENT: CHEPE PATEL : 1930 MR#: [id number] ADMIT: 01/28/2017 JOB ID: [id number] DATE: 01/31/2017 SUBJECTIVE: The patient feels much better. He does not have any heaviness in his chest anymore. He is breathing better. Overall he is quite pleased after the intervention. OBJECTIVE: Stable vitals. Pulse 60, blood pressure 102/56. Neck: Supple. No JVD. Afebrile. The patient had one episode of fever last night at 3 a.m. He was reported to be 39.8. The next reading was 36.3. Chest: Clear. Heart: Sounds S1, S2, regular. Groin nicely healed. TRANSFERRER: Alert and oriented. LABORATORIES: Rest of the labs noted. His hemoglobin is stable. His white count has come down to 19.7. His neutrophil count has gone down to 72%. No bandemia is reported. ASSESSMENT AND PLAN: Plans are for to do a ov[place]o culture and to figure out a source of his fever. It could be artifactual too given the fact that there was only one notation. Clinically he is doing better and does not have any obvious source of fever. has given him an empiric trial of antibiotics. I think given his recent stenting this is appropriate. Cardiac-daly he is stable. He will be followed up as an outpatient with Dr. Mesa. Please do not hesitate to contact me if needed.
--- NOTE | 2017-01-31 14:23 | PCM.PNMED ---
Subjective Date of Service Jan 31, 2017 Subjective Nursing reports patient had an isolated temperature of 39.8C during the night that resolved spontaneously. Patient's heart rate went in and out of Afib with a rate in the 70s during the night, but converted back to NSR. Patient remained asymptomatic during this time. Patient rested well. Exam Vital Signs Vital Sign - Last Date Time Temp Pulse Resp B/P Pulse Ox O2 Delivery O2 Flow Rate FiO2 01/31/17 12:01 36.4 64 16 102/56 97 Room Air 01/30/17 16:12 Intake and Output 01/30/17 01/30/17 01/31/17 Cumulative From/Thru 15:00 23:00 07:00 01/28/17 18:55 - 01/31/17 06:36 Intake Total 200 ml 250 ml 200 ml 3393 ml Output Total 300 ml 350 ml 200 ml 2850 ml Balance -100 ml -100 ml 0 ml 543 ml Intake Oral 50 ml 200 ml 990 ml IV Total 200 ml 200 ml 2403 ml Output Urine Total 300 ml 350 ml 200 ml 2850 ml # Voids 1 1 2 # Bowel Movements 1 2 Exam Constitutional: Patient is alert and awake. Conversive and cooperative. Head: Normocephalic and atraumatic. Eyes. EOMI. No scleral icterus Heart. Regular rate and rhythm. No murmurs. No peripheral edema. Lungs: clear to auscultation. No wheeze, rales, or rhonchi. ABD: soft. nontender. bowel sounds present throughout. Musculoskeletal: moves all four extremities appropriately. Patient ambulating around room. Skin: Warm, dry. No signs of infection around the cardiac cath insertion site on the Right inguinal area. Neuro: CN II-XII intact. No focal deficits. Psych: Appropriate Mood and affect. Alert and Oriented X3. IVs and Medications IV Fluids 250ml of NS. Medications Reviewed: Medications were reviewed in detail Lab and Diagnostics Item Value Date Time Red Blood Count 4.42 mil/mm3 01/31/17317 Mean Corpuscular Volume 91.2 fL 01/31/17317 Mean Corpuscular Hemoglobin 31.2 pg 01/31/17317 Mean Corpuscular Hemoglobin Concent 34.2 % 01/31/17317 Red Cell Distribution Width 13.8 % 01/31/17317 Neutrophils (%) (Auto) 72.1 % 01/31/17317 Lymphocytes (%) (Auto) 13.4 % L 01/31/17317 Monocytes (%) (Auto) 13.6 % H 01/31/17317 Eosinophils (%) (Auto) 0.3 % 01/31/17317 Basophils (%) (Auto) 0.3 % 01/31/17317 Estimat Glomerular Filtration Rate 91 mL/min 01/31/17317 Calcium Level 8.1 mg/dL L 01/31/17317 Total Bilirubin 0.5 mg/dL 01/31/17317 Aspartate Amino Transf (AST/SGOT) 33 U/L 01/31/17317 Alanine Aminotransferase (ALT/SGPT) 12 U/L 01/31/17317 Alkaline Phosphatase 61 U/L 01/31/17317 Total Protein 6.1 g/dL L 01/31/17317 Albumin 2.9 g/dL L 01/31/17317 Procalcitonin 0.05 ng/mL 01/31/17317 Prothrombin Time 11.1 sec 01/30/17 0810 Prothromb Time International Ratio 1.04 ratio 01/30/17 0810 Result Diagram: 01/31/1731701/31/17317 Microbiology Nasopharyngeal PCR - none detected Blood Cultures Pending. UA Specimen: [id number] Collected: 01/28/17 Status: COMP Req#: [id number] Received: 01/28/17 Source: URINE CC Sp Desc : PP Mckinley Dr: Matt Powell DO Ordered: URINE CULT Procedure Result Verified Site Microbiology GILDA CULT URINE Final 01/30/17-0803 Organism 1 MIXED UROGENITAL THERESA U COLONY COUNT/QUANTITY 25-50,000 CFU/ml 01/31 Blood cultures pending 01/31 UA culture results pending X-Rays, CTs and MRIs X-RAY CHEST ONE VIEW, PORTABLE IMPRESSION: No acute cardiopulmonary disease. 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 Dictated by: Bobby Weaver M.D. on 01/28/2017 at 19:10 12-lead ECG Normal Sinus rhythm. Low voltage. (@ 02:45) Repeat showed no changes. Cardiac Echo Impressions Echocardiogram Report Interpretation Summary The ejection fraction is estimated to be 50-55%. Mid anteroseptal and distal inferior hypokinesis- new There is no significant valvular heart disease. Electronically signed by: Moustapha Dacosta on Reading Physician:01/29/2017 11:23 AM Assessment & Plan Clearance Dilan is an 86-year-old man with past history significant for coronary artery disease, hyperlipidemia, hypertension, remote history of sarcoma who presented to [facility] emergency department today due to sternal chest pain that started a few hours prior to presentation. Patient noted that his pain radiated to the right side of his chest. NSTEMI - Chest Pain with elevated Troponin, 90% stenosis of LAD per (01/30) angiography, new onset, present admission, ongoing - Cardiac Angiography done 01/[address] Dacosta - Patient had 90% stenosis of LAD with one stent placed -Monitor on telemetry -CHADS-Vasc score of 4 indicating high risk for CVA, HAS-BLED score of 2 indicating moderate risk for major bleeding. - Heparin drip stopped, last dose 01/30 @0600. - Continue Metoprolol tartrate 50 mg PO BID - Continue Statin - Continue ACEI - Lisinopril 5mg PO daily - Continue Clopidogrel 75mg PO daily - Continue supplemental O2 at 2L NC - Continue Morphine 2mg IV PRN - Continue NTG 0.5mg topical PRN Leukocytosis, present remission, active - Patient had isolated temperature of 39.8C that resolved spontaneously. - Draw Blood cultures x2, and UA culture pending. - CXR showed Medial right basilar patchy airspace opacity consistent with atelectasis, aspiration or developing pneumonia. Likely atelectasis considering patient positioning and poor inspiratory effort. - Started on Ceftriaxone 2g IV Q24 - Abx day 1. Atrial fibrillation with rapid ventricular response, new onset, present on admission, Resolved - Patient had a couple of asymptomatic episodes of Afib with rate in the 70's that converted back to NSR within a few beats. Patient received 1,000U heparin on 01/30 and is receiving Metoprolol BID. Will monitor. -Patient does have a history of coronary artery disease and is managed by cardiology outpatient. -Etiology of his atrial fibrillation includes: CAD as well as a possible infection given patient's leukocytosis -01/30 echo showed EF of 50-55% with mid anteroseptal and distal inferior hypokinesis, which is changed from his 09/29/16 echo with EF 60-65% - Will likely transition to Warfarin in outpatient appointment. Coronary artery disease, chronic, active. -Continue statin, Hypertension, present on admission, active -Start Metoprolol Tartrate 50mg PO BID. Will confer with cardiology prior to discharge. Hyperlipidemia -increase statin dose as above Hyperglycemia -No history of diabetes -A1C - pending Maintenance - Incentive Spirometry ordered - PT ordered CODE STATUS: full Disposition: Patient is admitted under inpatient status with expected time of discharge is tomorrow pending patient's morning labs. VTE Mechanical Devices: Intermittant Pneumatic CD Resuscitation Status: CPR: Attempt Resuscitation Attending Statement The patient was seen and examined together with Dr. Oconnell on 01/31/17 and I agree with the history, exam and plan as outlined in the note above. Dwight Oconnell DO Jan 31, 2017 14:23 Manjula Helm DO Feb 01, 2017 15:35
--- NOTE | 2017-01-31 18:39 | NUR ---
HR Pt in a fib at beginning of shift with rates in the 80s/90s, Pt given am medications including metoprolol, Pt converted to SR in the 60s/70s at 0823, Pt remained in SR per case monitor for remainder of the shift.
[2017-01-31] MEDS: Diltiazem Inj 125 MG in Dextrose 5% 100 ML IV SCH (22:20)
[2017-02-01 02:55] LABS: BASOPHILS % (AUTO) 0.4 % (0-3); EOSINOPHILS % (AUTO) 2.2 % (0-5); MONOCYTES % (AUTO) 15.2 % (4-12); Mean Corpuscular Volume 91.7 fL (81-100); Platelet Count 223 bil/L (150-400)
[2017-02-01 03:02] VITALS: BP 114/72; PULSE 63; RESP 16; O2SAT 98
--- NOTE | 2017-02-01 05:51 | NUR ---
Cardiac Pt continues to be in SR 70's, groin site soft non tender with no hematoma noted and distal pulses palpable. No c/o CP or SOB and VSS.
[2017-02-01 07:57] VITALS: BP 128/78; PULSE 64; RESP 18; O2SAT 96
[2017-02-01 08:00] VITALS: PULSE 65
[2017-02-01] MEDS ORDERED: MeTOProlol XL 50 mg ER24 Tablet PO SCH (08:30)
[2017-02-01] MEDS: cefTRIAXone Inj 2,000 MG in Dextrose 5% Minibag Plus 50 ML IV SCH (09:19)
[2017-02-01] MEDS ORDERED: SACC250C PO (11:23)
[2017-02-01] MEDS ORDERED: NITR0.4T6 SL (11:23)
[2017-02-01] MEDS ORDERED: ATOR20TA PO (11:23)
[2017-02-01] MEDS ORDERED: AMOX1TAB11 PO (11:23)
[2017-02-01] MEDS ORDERED: METO-272 PO (11:23)
[2017-02-01] MEDS ORDERED: LISI-571 PO (11:23)
[2017-02-01] MEDS ORDERED: CLOP75TA28 PO (11:23)
--- NOTE | 2017-02-01 11:32 | PCM.DIMED ---
Dwight Oconnell DO 02/01/17 1112: Discharge Instructions Date of Service Feb 01, 2017 Dates of Hospitalization Jan 28, 2017 at 21:28 Discharge Diagnosis Discharge Diagnosis Non-ST segment Elevation Myocadial Infarction Leukocytosis Atrial fibrillation with rapid ventricular response Coronary artery disease Hypertension Hyperlipidemia Hyperglycemia Medication Instructions Additional med instructions I will be sending you home with Metoprolol XR 50mg tablets to take twice a day I have increased your Lipitor to 80mg tablets to take daily. I have sent you home with Lisinopril 5mg tablet to take daily I have sent you home with Plavix 75mg tablet to take daily for the next six months to a year. I have sent you home with Amoxicillin 500mg tablets to take twice daily until complete. I have sent you home with Florastor 250mg tablet to take daily for two weeks. I have sent you home with Nitroglycering to put under your tongue if you have any chest pain. Test Results Test Results Cardiac Angiography Left Anterior Descending Artery has a tight 90% lesion in its proximal segment. This is followed by mild 30% to 40% tubular stenosis The proximal part of the stent dilated with a 3.5 x 18 mm stent in the Left Anterior Descending Artery. Final angiographic results were excellent. Moustapha Dacosta MD 01/30/17 1156 Diet Discharge Diet: Heart Healthy Activity Discharge Activity: No restrictions Call your provider Call your provider for: Fever or Chills, Shortness of breath, Bleeding, Chest pain, Vomitting, Excessive diarrhea, Weakness (unilateral) Patient Instructions Patient Instructions Light activity until cleared by cardiology. Follow-up Provider: Moustapha Dacosta MD Follow-up with PCP in: 2 weeks Provider: [facility] Follow-up in: 1 week Cardiac Rehab: 1 week Manjula Helm DO 02/01/17 1346: Discharge Instructions Attending's Statement The patient was seen and examined together with Dr. Oconnell on 02/01/17 and I agree with the history, exam and plan as outlined in the note above. Dwight Oconnell DO Feb 01, 2017 11:12 Manjula Helm DO Feb 01, 2017 13:46
--- NOTE | 2017-02-01 11:48 | NUR ---
Social Work: Discharge D: Pt discussed in multidisciplinary rounds. Pt is medically stable for discharge home. Capacity for self-care addressed; no concerns or d/c needs identified at this time. FINANCIAL AID ADVISOR met with the patient and at bedside. They both agree with discharge plan home and do not identify and needs or concerns. Pt has been cleared for d/c home by PT with no further skilled PT needs. A: Pt who is I at baseline. P: Pt to discharge home via POV and no further social work needs. FRANKIE Sevilla
[2017-02-01 12:00] VITALS: BP 120/66; PULSE 56; RESP 18; O2SAT 96
--- NOTE | 2017-02-01 13:15 | NUR ---
Discharge pt ordered for discharge home with family. pt aware and agreeable. discharge instructions and medications reviewed with patient and son. denies questions. pt escorted to front lobby via wheelchair and all belongings at about 1311.
--- NOTE | 2017-02-01 19:16 | PCM.DC.MED ---
Discharge Summary Date of Service Feb 01, 2017 Dates of Hospitalization Date of Hospital Admission Jan 28, 2017 at 21:28 Date of Discharge: Feb 01, 2017 Providers: Admitting Physician: Vicky Simon DO Primary Care Physician: Amilcar Rivera MD Attending Physician: Manjula Helm DO Diagnosis at Time of Discharge Diagnosis at Time of Discharge Non-ST segment Elevation Myocadial Infarction Leukocytosis Atrial fibrillation with rapid ventricular response Coronary artery disease Hypertension Hyperlipidemia Hyperglycemia Consultations Dr. Dacosta - Cardiology. Procedures XRay, CTs & MRIs X-RAY CHEST ONE VIEW, PORTABLE IMPRESSION: No acute cardiopulmonary disease. 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 Dictated by: Bobby Weaver M.D. on 01/28/2017 at 19:10 ECG 12 Lead Normal Sinus rhythm. Low voltage. (@ 02:45) Repeat showed no changes. Cardiac Echo Impression Echocardiogram Report Interpretation Summary The ejection fraction is estimated to be 50-55%. Mid anteroseptal and distal inferior hypokinesis- new There is no significant valvular heart disease. Electronically signed by: Moustapha Dacosta on Reading Physician:01/29/2017 11:23 AM Invasive Procedures INTERVENTIONAL CARDIAC CATHETERIZATION DATE OF SERVICE: PROCEDURE: 1. Selective right and left coronary angiography. 2. Left heart catheterization. 3. Percutaneous intervention of the left anterior descending. INDICATION: Non ST-elevation myocardial infarction. INTERVENTIONAL REPORT: We then proceeded ahead with an intervention on the LAD. This was pre-dilated with a 2.0 balloon and then stented with a 3.0 x 26 mm balloon. The proximal part of the stent was post dilated with a 3.5 x 18 mm stent. Final angiographic results were excellent. The patient is advised to stay on dual antiplatelet therapy for at least six months. Given the fact that he goes in and out of atrial fibrillation, he would be a candidate for anticoagulation as well. I will be discussing all this with the patient. My suggestion would be to start him on either aspirin, Plavix or warfarin and Plavix for six months and then switch to warfarin alone. Moustapha Dacosta MD 01/30/17 1156 Other Diagnostics PROCEDURE: X-RAY CHEST ONE VIEW, PORTABLE IMPRESSION: 1. Medial right basilar patchy airspace opacity consistent with atelectasis, aspiration or developing pneumonia. Correlate clinically. 2. Bilateral pleural plaques redemonstrated consistent with remote asbestos exposure. Interpreted: China Lorenz MD on 01/31/2017 at 10:03 EKG 01/29 @ 00:39 Atrial Fibrillation with minimal ST depression Brief History Dayan Kong is an 86-year-old man with past history significant for coronary artery disease, hyperlipidemia, hypertension, remote history of sarcoma admitted for NSTEMI and underwent cardiac angiography done by Dr. Dacosta with 1 stent placed in the LAD. Patient was found to have an elevated WBC count without any left shift or clinical evidence of infection. Patient was placed on empiric Ceftriaxone for infection. Post UT medication regimen initiated including: Metoprolol succinate 50mg BID, Atorvastatin 80mg daily, Lisinopril 5mg daily, Clopidogrel 75mg daily, and NTG SL PRN prescribed. Patient discharged to home with previously listed medications and Augmentin with additional Lactobacillus with close follow up with [facility] and Cardiology. Hospital Course Post UT medication regimen initiated including: Metoprolol succinate 50mg BID, Atorvastatin 80mg daily, Lisinopril 5mg daily, Clopidogrel 75mg daily, and NTG SL PRN prescribed. Patient discharged to home with previously listed medications and Augmentin with additional Lactobacillus with close follow up with [facility] and Cardiology. Atrial fibrillation with rapid ventricular response, rate controlled -Placed on Metoprolol Succinate 50mg BID -Given Heparin 1,000U (last dose 01/30) -Placed on Clopidogrel 75mg PO daily with a loading dose of 300mg. NSTEMI - Chest Pain with elevated Troponin -Stent placed after coronary angiography discovered 90% stenosis of LAD, performed by Dr. Dacosta. -Monitored on telemetry -Placed on Clopidogrel -Placed on Metoprolol Succinate -Placed on Lisinopril -Increased Atorvastatin to 80mg Leukocytosis -Placed on Ceftriaxone -Discharged with Augmentin Coronary artery disease -Increased Atorvastatin to 80mg Hypertension -Placed on Metoprolol and Lisinopril Hyperlipidemia -Increased Atorvastatin to 80mg Hyperglycemia -Controlled in the hospital without the need for insulin or PO medications. Exam Vital Signs (Last) Date Time Temp Pulse Resp B/P Pulse Ox O2 Delivery O2 Flow Rate FiO2 02/01/17 12:00 36.9 56 18 120/66 96 Room Air 01/30/17 16:12 Exam Constitutional: Awake and Alert and in no acute distress Head: Normocephalic and Atraumatic Eyes: EOMI, no scleral icterus Heart: Regular Rate and Rhythm. No murmurs. No peripheral edema. +2/4 radial pulses bilaterally. Lungs: Clear to auscultation bilaterally. No wheeze, rales, or rhonchi. ABD: soft, nontender, bowel sounds present throughout. Musculoskeletal: Moves all four extremities appropriately. Walks with assistance. Skin: No rash. Warm and dry. Cardiac cath site without erythema. Neuro: CN II-XII intact. no focal deficits. Psych: Appropriate Mood and affect. Test 01/28/17 19:15 01/30/17 00:25 01/30/17 08:10 01/31/17 03:18 Magnesium Level 2.0mg/dL (1.6-2.6) Thyroid Stimulating Hormone (TSH) 1.280uIU/mL (0.450-4.500) Activated Partial Thromboplast Time 48.8sec (22.8-33.0) Hematology Comments Prothrombin Time 11.1sec (8.1-12.5) Prothromb Time International Ratio 1.04ratio Lactic Acid Level 0.9mmol/L (0.4-2.0) Troponin T 0.350ug/L (0.0-0.011) Sodium Level 134mEq/L (134-144) Potassium Level 4.8mEq/L (3.5-5.2) Chloride Level 103mEq/L (97-108) Carbon Dioxide Level 20mmol/L (18-29) Blood Urea Nitrogen 30mg/dL (8-27) Creatinine 0.85mg/dL (0.76-1.27) Estimat Glomerular Filtration Rate 91mL/min (>59) Glucose Level 123mg/dL (60-99) Hemoglobin A1c 6.1% (4.8-5.6) Calcium Level 8.1mg/dL (8.5-10.1) Total Bilirubin 0.5mg/dL (0.0-1.2) Aspartate Amino Transf (AST/SGOT) 33U/L (0-50) Alanine Aminotransferase (ALT/SGPT) 12U/L (0-44) Alkaline Phosphatase 61U/L (25-160) Total Protein 6.1g/dL (6.4-8.4) Albumin 2.9g/dL (3.4-5.0) Procalcitonin 0.05ng/mL (0.00-0.08) Test 01/31/17 10:26 02/01/17 02:30 02/01/17 08:05 Urine Color Yellow (YELLOW) Urine Appearance Hazy (CLEAR,HAZY) Urine pH 5.5 (5.0-8.0) Urine Specific [place] 1.020 (1.003-1.035) Urine Protein 30mg/dL (NEG,TRACE) Urine Glucose (UA) Negativemg/dL (NEGATIVE) Urine Ketones Negativemg/dL (NEGATIVE) Urine Occult Blood Moderate (NEGATIVE) Urine Nitrite Negative (NEGATIVE) Urine Bilirubin Negative (NEGATIVE) Urine Urobilinogen Normalmg/dL (NORMAL) Urine Leukocyte Esterase Trace (NEGATIVE) Urine RBC 11-50/hpf (0-2) Urine WBC 6-10/hpf (0-5) Urine Epithelial Cells Occasional/hpf (NONE-MOD) Urine Crystals None seen (NONE SEEN) Urine Bacteria None/hpf (NONE-FEW) Urine Hyaline Casts None/lpf (NONE) Urine Granular Casts Occasional (NONE SEEN) Urine Waxy Casts None seen (NONE SEEN) Urine Red Blood Cell Casts None seen (NONE SEEN) Urine White Blood Cell Casts None seen (NONE SEEN) Urine Mucus Present (None Seen) Urine Trichomonas None seen (NONE SEEN) Urine Yeast None (NONE SEEN) Urinalysis Comment None Urine Culture Reflexed Indicated White Blood Count 13.2th/mm3 (3.8-10.1) Red Blood Count 4.23mil/mm3 (4.40-5.80) Hemoglobin 13.1g/dL (13.8-17.2) Hematocrit 38.8% (41.0-50.0) Mean Corpuscular Volume 91.7fL (81-100) Mean Corpuscular Hemoglobin 31.0pg (27.0-35.0) Mean Corpuscular Hemoglobin Concent 33.8% (32.0-37.0) Red Cell Distribution Width 13.5% (12.3-15.4) Platelet Count 223bil/L (150-400) Neutrophils (%) (Auto) 66.0% (40-74) Lymphocytes (%) (Auto) 16.0% (14-46) Monocytes (%) (Auto) 15.2% (4-12) Eosinophils (%) (Auto) 2.2% (0-5) Basophils (%) (Auto) 0.4% (0-3) Hold Rivera Top Tube Received (Received) Microbiology Results Nasopharyngeal PCR - none detected Blood Cultures Pending. UA Specimen: [id number] Collected: 01/28/17 Status: MIRTA Req#: [id number] Received: 01/28/17 Source: URINE CC Sp Desc : PP Subm Dr: Matt Powell DO Ordered: URINE CULT Procedure Result Verified Site Microbiology GILDA CULT URINE Final 01/30/17 Organism 1 MIXED UROGENITAL THERESA U COLONY COUNT/QUANTITY 25-50,000 CFU/ml 01/31 Blood cultures pending 01/31 UA culture results pending Discharge Medications Discharge Medications Amoxicillin/Clav K 500-125 mg (Augmentin 500) 1 Tab Tab 1 TABLET PO BID Prescribed by: Alex LEE Aspirin Chew (Aspirin Chew) 81 Mg Chew 81 MG PO QAM (Reported) Atorvastatin (Lipitor) 20 Mg Tablet 80 MG PO HS Prescribed by: Alex LEE Cholecalciferol (Vitamin D3) (Vitamin D3) 1,000 Unit Tab.chew 1,000 UNIT PO QAM (Reported) Clopidogrel (Clopidogrel) 75 Mg Tablet 75 MG PO DAILY Prescribed by: Alex LEE Cyanocobalamin (Vitamin B12) 500 Mcg Tablet 1,000 MCG PO QAM (Reported) Finasteride (Finasteride) 5 Mg Tablet 5 MG PO QAM (Reported) Isosorbide MN ER (Isosorbide MN ER) 60 Mg Tab.er.24h 60 MG PO QAM (Reported) Lisinopril (Lisinopril) 5 Mg Tablet 5 MG PO QAM (Reported) Lisinopril (Lisinopril) 5 Mg Tablet 5 MG PO DAILY Prescribed by: Alex LEE Metoprolol Succinate ER (Metoprolol Succinate ER) 50 Mg Tab.er.24h 50 MG PO BID Prescribed by: Alex LEE Tamsulosin ER (Tamsulosin ER) 0.4 Mg Cap.er.24h 0.8 MG PO HS (Reported) As needed Alprazolam (Alprazolam) 0.5 Mg Tablet 0.25 MG PO TID PRN PRN For Anxiety ( Reported) Nitroglycerin SL (Nitroglycerin SL) 0.4 Mg Tab.subl 0.4 MG SL Q5MIN PRN PRN For Chest Pain Prescribed by: Alex LEE Saccharomyces Boulardii (Florastor) 250 Mg Capsule 250 MG PO DAILY PRN PRN For Diarrhea or Loose Stool Prescribed by: Alex LEE Additional med instructions I will be sending you home with Metoprolol XR 50mg tablets to take twice a day I have increased your Lipitor to 80mg tablets to take daily. I have sent you home with Lisinopril 5mg tablet to take daily I have sent you home with Plavix 75mg tablet to take daily for the next six months to a year. I have sent you home with Amoxicillin 500mg tablets to take twice daily until complete. I have sent you home with Florastor 250mg tablet to take daily for two weeks. I have sent you home with Nitroglycering to put under your tongue if you have any chest pain. Followup Plan Disposition: Home Follow-up plan Follow up with [facility] in one week. Follow up with Cardiology in two weeks. Discharge Diet: Heart Healthy Discharge Activity: No restrictions Patient Instructions Light activity until cleared by cardiology. Follow-up Provider: Moustapha Dacosta MD Follow-up with PCP in: 2 weeks Provider: [facility] Follow-up in: 1 week Cardiac Rehab: 1 week Time spent 35 minutes coordinating discharge and discussing with family. Attending Statement The patient was seen and examined together with Dr. Oconnell on 02/01/17 and I have added additional information to the note above. copies to: Manjula Helm DO; Moustapha Dacosta MD; Dwight Oconnell Anthony P DO Feb 01, 2017 19:16 Manjula Helm DO Feb 02, 2017 14:21
== END 2017-02-01 13:11 | disposition home or self-care (01) | DRG 247 ==
LOC: SED 18:07 → PCC 21:28
PROVIDERS: ADMIT Internal Medicine; ATTEND Internal Medicine
PROC: 027034Z Dilation of Coronary Artery, One Artery with Drug-eluting Intraluminal Device, Percutaneous Approach (ICD-10-PCS; principal; 2017-01-30)
PROC: 4A023N7 Measurement of Cardiac Sampling and Pressure, Left Heart, Percutaneous Approach (ICD-10-PCS; 2017-01-30)
PROC: B2111ZZ Fluoroscopy of Multiple Coronary Arteries using Low Osmolar Contrast (ICD-10-PCS; 2017-01-30)
PROC: B2151ZZ Fluoroscopy of Left Heart using Low Osmolar Contrast (ICD-10-PCS; 2017-01-30)
DX: I21.4 Non-ST elevation (NSTEMI) myocardial infarction (principal); I48.91 Unspecified atrial fibrillation; I25.10 Atherosclerotic heart disease of native coronary artery without angina pectoris; I10 Essential (primary) hypertension; E78.5 Hyperlipidemia, unspecified; R73.9 Hyperglycemia, unspecified; D72.829 Elevated white blood cell count, unspecified